=== PATIENT | female | born 1975 | race Caucasian/White ===

== ENCOUNTER → 2019-04-13 | Outpatient (CLI) | payer SELFPAY | END | disposition home or self-care (01) | LOC: RESCLI 11:23 | DX: Z12.4 Encounter for screening for malignant neoplasm of cervix (principal); G40.901 Epilepsy, unspecified, not intractable, with status epilepticus; D50.9 Iron deficiency anemia, unspecified; Z79.899 Other long term (current) drug therapy; Z88.8 Allergy status to other drugs, medicaments and biological substances ==

== ENCOUNTER → 2020-01-25 | Outpatient (CLI) | payer BC | END | disposition home or self-care (01) | LOC: RESCLI 01:13 | PROVIDERS: ATTEND Internal Medicine Nephrology | DX: G40.901 Epilepsy, unspecified, not intractable, with status epilepticus (principal); Z79.899 Other long term (current) drug therapy; Z23 Encounter for immunization; Z98.890 Other specified postprocedural states; Z88.0 Allergy status to penicillin ==

== ENCOUNTER → 2020-07-16 | Outpatient (CLI) | payer BC | END | disposition home or self-care (01) | LOC: RESCLI 00:43 | PROVIDERS: ATTEND Internal Medicine | DX: G40.901 Epilepsy, unspecified, not intractable, with status epilepticus (principal); Z79.899 Other long term (current) drug therapy; Z98.890 Other specified postprocedural states; Z88.8 Allergy status to other drugs, medicaments and biological substances ==

== ENCOUNTER → 2021-12-05 | Outpatient (CLI) | payer OTHER | END | disposition home or self-care (01) | LOC: RESCLI 16:35 | PROVIDERS: ATTEND Internal Medicine | DX: G40.901 Epilepsy, unspecified, not intractable, with status epilepticus (principal); K58.9 Irritable bowel syndrome, unspecified; Z98.890 Other specified postprocedural states; Z88.8 Allergy status to other drugs, medicaments and biological substances; Z79.899 Other long term (current) drug therapy ==

== ENCOUNTER → 2022-12-04 | Outpatient (CLI) | payer OTHER | END | disposition home or self-care (01) | LOC: RESCLI 15:33 | PROVIDERS: ATTEND Student in an Organized Health Care Education/Training Program | DX: K58.9 Irritable bowel syndrome, unspecified (principal); G40.901 Epilepsy, unspecified, not intractable, with status epilepticus; N89.8 Other specified noninflammatory disorders of vagina; F41.9 Anxiety disorder, unspecified; Z88.8 Allergy status to other drugs, medicaments and biological substances; Z98.890 Other specified postprocedural states; Z79.899 Other long term (current) drug therapy ==

== ENCOUNTER → 2024-04-17 | Outpatient (CLI) | payer OTHER | END | disposition home or self-care (01) | LOC: RESCLI 03:27 | PROVIDERS: ATTEND Internal Medicine | DX: G40.901 Epilepsy, unspecified, not intractable, with status epilepticus (principal); K58.9 Irritable bowel syndrome, unspecified; E55.9 Vitamin D deficiency, unspecified; N89.8 Other specified noninflammatory disorders of vagina; F41.9 Anxiety disorder, unspecified; Z79.899 Other long term (current) drug therapy; Z98.890 Other specified postprocedural states; Z88.8 Allergy status to other drugs, medicaments and biological substances ==